=== PATIENT | male | born 2000 | race African-American/Black ===

== ENCOUNTER 2023-03-21 12:31 | Inpatient (IN) | payer OTHER ==
[~2023-03-21] VITALS: Ht 172.7 cm; Wt 60.9 kg
[2023-03-21] VITALS (10 sets, daily range): BP systolic 116–135; BP diastolic 61–79; TEMP 97.6–98.4; O2SAT 100
[2023-03-21] MEDS ORDERED: KETOROLAC 30 MG/ML 1ML VIAL IM ONE (17:30)
[2023-03-21 17:32] LABS: HEMATOCRIT 45.4 % (42.0-52.0); HEMOGLOBIN 15.4 g/dl (13.5-17.5); MEAN CORPUSCULAR HEMOGLOBIN 30.3 pg (27.0-33.0); MEAN CORPUSCULAR HGB CONC 33.9 g/dl (32.0-36.5); MEAN CORPUSCULAR VOLUME 89.2 fl (80.0-96.0); PLATELET COUNT, AUTOMATED 221 10^3/uL (150-450); RED BLOOD COUNT 5.09 10^6/uL (4.30-6.10); WHITE BLOOD COUNT 7.9 10^3/uL (4.0-10.0)
[2023-03-21 17:53] LABS: ALBUMIN 4.5 G/DL (3.2-5.2); ALKALINE PHOSPHATASE 80 U/L (46-116); ALT/SGPT 13 U/L (7.0-40); AST/SGOT 10 U/L (<34); BILIRUBIN,TOTAL 0.8 MG/DL (0.3-1.2); BLOOD UREA NITROGEN 12 MG/DL (9-23); CALCIUM LEVEL 9.5 MG/DL (8.5-10.1); CARBON DIOXIDE LEVEL 24 MMOL/L (20-31); CHLORIDE LEVEL 106 MMOL/L (98-107); CREATININE FOR GFR 0.89 MG/DL (0.70-1.30); GLUCOSE, FASTING 88 MG/DL (60-100); SODIUM LEVEL 143 MMOL/L (136-145); TOTAL PROTEIN 7.1 G/DL (5.7-8.2)
[2023-03-21] MEDS ORDERED: BISACODYL 10MG SUPP PR PRN (18:10)
[2023-03-21] MEDS ORDERED: LEVALBUTEROL 1.25MG 0.5ML CONCENTRATE NEB NEB PRN (18:10)
[2023-03-21] MEDS ORDERED: ONDANSETRON 4MG 2ML VIAL IV PRN (18:10)
[2023-03-21] MEDS ORDERED: PERCOCET 5MG/325MG TAB PO PRN ×2 (18:10)
[2023-03-21] MEDS ORDERED: ACETAMINOPHEN TAB 650MG DOSE (2X325MG) PO PRN (18:10)
[2023-03-21] MEDS ORDERED: KCL 20MEQ IN D5/NS 1000ML 1,000 ML IV SCH (18:10)
[2023-03-21 18:15] LABS: ERYTHROCYTE SEDIMENTATION RATE 1 mm/hr (0-15)
[2023-03-21] MEDS ORDERED: flumazeniL 0.5MG/5ML VIAL IV PRN (18:20)
[2023-03-21] MEDS ORDERED: LIDOCAINE 1% MDV 20ML VIAL SC PRN (18:20)
[2023-03-21] MEDS: KETOROLAC 30 MG/ML 1ML VIAL IV SCH (19:27)
[2023-03-21] MEDS: MIDAZOLAM 5MG 5ML VIAL (FOR CHEST TUBE INSERTIONS) IV PRN ×2 (19:48→19:52)
[2023-03-21] MEDS: LEVALBUTEROL 1.25MG 0.5ML CONCENTRATE NEB NEB SCH (20:55)
[2023-03-21] MEDS ORDERED: DOCUSATE SODIUM 100MG CAPSULE PO SCH (21:00)
[2023-03-21] MEDS ORDERED: HEPARIN SOD (PORCINE) 5000UNITS/ML 1ML VIAL/SYRINGE SC SCH (21:00)
[2023-03-22] VITALS (7 sets, daily range): BP systolic 107–132; BP diastolic 59–77; TEMP 96.9–97.9; O2SAT 98–100
[2023-03-22] MEDS: LEVALBUTEROL 1.25MG 0.5ML CONCENTRATE NEB NEB SCH ×4 (01:45→19:43)
[2023-03-22] MEDS: KETOROLAC 30 MG/ML 1ML VIAL IV SCH ×3 (05:54→18:19)
[2023-03-22] MEDS ORDERED: ISOVUE-370 76% 100ML VIAL As Ordered ONE (06:07)
[2023-03-22 06:46] LABS: BASO % 0.3 % (0.0-1.0); EOS % 0.5 % (0.0-3.0); HEMATOCRIT 42.7 % (42.0-52.0); HEMOGLOBIN 14.6 g/dl (13.5-17.5); LYMPH # 1.9 10^3/uL (1.5-5.0); LYMPH % 30.2 % (24.0-44.0); MEAN CORPUSCULAR HEMOGLOBIN 30.8 pg (27.0-33.0); MEAN CORPUSCULAR HGB CONC 34.2 g/dl (32.0-36.5); MEAN CORPUSCULAR VOLUME 90.1 fl (80.0-96.0); MONO # 0.7 10^3/uL (0.0-0.8); MONO % 10.7 % (2.0-8.0); NEUTROPHILS # 3.7 10^3/uL (1.5-8.5); NEUTROPHILS % 58.1 % (36.0-66.0); PLATELET COUNT, AUTOMATED 201 10^3/uL (150-450); RED BLOOD COUNT 4.74 10^6/uL (4.30-6.10); WHITE BLOOD COUNT 6.4 10^3/uL (4.0-10.0)
[2023-03-22 07:12] LABS: BLOOD UREA NITROGEN 14 MG/DL (9-23); CALCIUM LEVEL 9.1 MG/DL (8.5-10.1); CARBON DIOXIDE LEVEL 28 MMOL/L (20-31); CHLORIDE LEVEL 105 MMOL/L (98-107); CREATININE FOR GFR 1.03 MG/DL (0.70-1.30); GLUCOSE, FASTING 89 MG/DL (60-100); POTASSIUM SERUM 3.9 MMOL/L (3.5-5.1); SODIUM LEVEL 143 MMOL/L (136-145)
[2023-03-22] MEDS ORDERED: ACET1TAB55 PO (07:56)
[2023-03-22] MEDS ORDERED: IBUP-1728 PO (07:56)
[2023-03-22] MEDS ORDERED: HOME MED LIST COMPLETE! XX SCH (08:00)
[2023-03-22] MEDS: MOM 30ML SUSPENSION UDC PO SCH (08:36)
[2023-03-22] MEDS ORDERED: PANTOPRAZOLE 40MG TAB (PROTONIX) PO SCH (09:00)
[2023-03-23] MEDS: KETOROLAC 30 MG/ML 1ML VIAL IV SCH ×4 (00:04→17:15)
[2023-03-23] MEDS: LEVALBUTEROL 1.25MG 0.5ML CONCENTRATE NEB NEB SCH ×4 (02:00→20:07)
[2023-03-23 03:49] VITALS: BP 132/62; TEMP 97.5; O2SAT 100
[2023-03-23 04:44] LABS: BASO % 0.4 % (0.0-1.0); EOS # 0.1 10^3/uL (0.0-0.5); EOS % 2.4 % (0.0-3.0); HEMATOCRIT 39.8 % (42.0-52.0); HEMOGLOBIN 13.6 g/dl (13.5-17.5); LYMPH # 2.2 10^3/uL (1.5-5.0); LYMPH % 46.9 % (24.0-44.0); MEAN CORPUSCULAR HEMOGLOBIN 30.3 pg (27.0-33.0); MEAN CORPUSCULAR HGB CONC 34.2 g/dl (32.0-36.5); MEAN CORPUSCULAR VOLUME 88.6 fl (80.0-96.0); MONO # 0.5 10^3/uL (0.0-0.8); MONO % 9.8 % (2.0-8.0); NEUTROPHILS # 1.9 10^3/uL (1.5-8.5); NEUTROPHILS % 40.5 % (36.0-66.0); PLATELET COUNT, AUTOMATED 189 10^3/uL (150-450); RED BLOOD COUNT 4.49 10^6/uL (4.30-6.10); WHITE BLOOD COUNT 4.6 10^3/uL (4.0-10.0)
[2023-03-23 05:11] LABS: BLOOD UREA NITROGEN 10 MG/DL (9-23); CALCIUM LEVEL 8.7 MG/DL (8.5-10.1); CARBON DIOXIDE LEVEL 25 MMOL/L (20-31); CHLORIDE LEVEL 108 MMOL/L (98-107); GLUCOSE, FASTING 96 MG/DL (60-100); POTASSIUM SERUM 3.5 MMOL/L (3.5-5.1); SODIUM LEVEL 142 MMOL/L (136-145)
[2023-03-23] MEDS: MOM 30ML SUSPENSION UDC PO SCH (07:50)
[2023-03-23 08:12] VITALS: BP 139/72; TEMP 98.2; O2SAT 100
[2023-03-23 12:00] VITALS: BP 121/67; TEMP 97.7; O2SAT 100
[2023-03-23 15:39] VITALS: BP 122/58; TEMP 98.2; O2SAT 99
[2023-03-23 20:00] VITALS: BP 130/82; TEMP 97.8; O2SAT 100
[2023-03-24] VITALS: BP 123/73; TEMP 98.2; O2SAT 99
[2023-03-24] MEDS: LEVALBUTEROL 1.25MG 0.5ML CONCENTRATE NEB NEB SCH ×4 (01:04→19:31)
[2023-03-24 04:00] VITALS: BP 125/59; TEMP 97.6; O2SAT 98
[2023-03-24 04:53] LABS: BASO % 0.4 % (0.0-1.0); EOS # 0.1 10^3/uL (0.0-0.5); EOS % 2.8 % (0.0-3.0); HEMATOCRIT 39.8 % (42.0-52.0); HEMOGLOBIN 13.5 g/dl (13.5-17.5); LYMPH # 2.3 10^3/uL (1.5-5.0); LYMPH % 46.3 % (24.0-44.0); MEAN CORPUSCULAR HGB CONC 33.9 g/dl (32.0-36.5); MEAN CORPUSCULAR VOLUME 88.4 fl (80.0-96.0); MONO # 0.5 10^3/uL (0.0-0.8); MONO % 10.4 % (2.0-8.0); NEUTROPHILS % 40.1 % (36.0-66.0); PLATELET COUNT, AUTOMATED 195 10^3/uL (150-450)
[2023-03-24 05:06] LABS: BLOOD UREA NITROGEN 10 MG/DL (9-23); CALCIUM LEVEL 8.4 MG/DL (8.5-10.1); CARBON DIOXIDE LEVEL 25 MMOL/L (20-31); CHLORIDE LEVEL 108 MMOL/L (98-107); CREATININE FOR GFR 0.89 MG/DL (0.70-1.30); GLUCOSE, FASTING 87 MG/DL (60-100); POTASSIUM SERUM 3.4 MMOL/L (3.5-5.1); SODIUM LEVEL 142 MMOL/L (136-145)
[2023-03-24] MEDS: KETOROLAC 30 MG/ML 1ML VIAL IV SCH ×5 (05:17→23:40)
[2023-03-24 08:07] VITALS: BP 117/70; TEMP 98.1; O2SAT 100
[2023-03-24] MEDS: MOM 30ML SUSPENSION UDC PO SCH (08:18)
[2023-03-24] MEDS ORDERED: POTASSIUM CHLORIDE 10MEQ SR TABLET PO ONE ×2 (09:00→11:00)
[2023-03-24 12:00] VITALS: BP 129/84; TEMP 97.7; O2SAT 100
[2023-03-24 16:08] VITALS: BP 125/73; TEMP 98.1; O2SAT 99
[2023-03-24 20:00] VITALS: BP 127/81; TEMP 98.3; O2SAT 95
[2023-03-25] VITALS: BP 123/83; TEMP 98.3; O2SAT 95
[2023-03-25] MEDS: LEVALBUTEROL 1.25MG 0.5ML CONCENTRATE NEB NEB SCH ×2 (01:10→08:09)
[2023-03-25 03:57] VITALS: BP 110/57; TEMP 98.1; O2SAT 99
[2023-03-25 05:17] LABS: BASO % 0.3 % (0.0-1.0); EOS # 0.1 10^3/uL (0.0-0.5); EOS % 1.7 % (0.0-3.0); HEMATOCRIT 41.2 % (42.0-52.0); HEMOGLOBIN 14.1 g/dl (13.5-17.5); LYMPH # 2.4 10^3/uL (1.5-5.0); LYMPH % 37.5 % (24.0-44.0); MEAN CORPUSCULAR HEMOGLOBIN 30.3 pg (27.0-33.0); MEAN CORPUSCULAR HGB CONC 34.2 g/dl (32.0-36.5); MEAN CORPUSCULAR VOLUME 88.6 fl (80.0-96.0); MONO # 0.5 10^3/uL (0.0-0.8); MONO % 7.7 % (2.0-8.0); NEUTROPHILS # 3.4 10^3/uL (1.5-8.5); NEUTROPHILS % 52.6 % (36.0-66.0); PLATELET COUNT, AUTOMATED 203 10^3/uL (150-450); RED BLOOD COUNT 4.65 10^6/uL (4.30-6.10); WHITE BLOOD COUNT 6.5 10^3/uL (4.0-10.0)
[2023-03-25] MEDS: KETOROLAC 30 MG/ML 1ML VIAL IV SCH (05:36)
[2023-03-25 05:50] LABS: BLOOD UREA NITROGEN 11 MG/DL (9-23); CARBON DIOXIDE LEVEL 26 MMOL/L (20-31); CHLORIDE LEVEL 107 MMOL/L (98-107); CREATININE FOR GFR 0.91 MG/DL (0.70-1.30); GLUCOSE, FASTING 88 MG/DL (60-100); POTASSIUM SERUM 3.7 MMOL/L (3.5-5.1); SODIUM LEVEL 143 MMOL/L (136-145)
[2023-03-25] MEDS: MOM 30ML SUSPENSION UDC PO SCH (07:58)
[2023-03-25 08:00] VITALS: BP 119/76; TEMP 96.5; O2SAT 99
== END 2023-03-25 11:03 | disposition home or self-care (01) | DRG 201 ==
LOC: M ED 12:31 → M PCU 18:09
PROVIDERS: ADMIT Internal Medicine; ATTEND Internal Medicine
PROC: 0W9B30Z Drainage of Left Pleural Cavity with Drainage Device, Percutaneous Approach (ICD-10-PCS; principal; 2023-03-22)
DX: J93.11 Primary spontaneous pneumothorax (principal); M54.50 Low back pain, unspecified; J43.9 Emphysema, unspecified; Z20.822 Contact with and (suspected) exposure to COVID-19

== ENCOUNTER → 2023-03-30 | Outpatient (CLI) | payer OTHER ==
[~2023-03-30] MED LIST: ACET1TAB55 PO; IBUP-1728 PO
== END ==
LOC: M PLAIMG 13:57
PROVIDERS: ATTEND Thoracic Surgery (Cardiothoracic Vascular Surgery)
DX: Z87.09 Personal history of other diseases of the respiratory system (principal)